=== PATIENT | female | born 1950 | race Caucasian/White ===

== ENCOUNTER 2017-03-26 12:26 | Inpatient (IN) | payer OTHER, BC ==
[~2017-03-26] VITALS: Ht 162.6 cm; Wt 103.7 kg
--- NOTE | ~2017-03-26 | HC ---
[facility] [address] [place] [address] CONSULTATION Name: YOBANI MOLINA Room #: 501-A [facility] IN ..#: [id number] Admission: 03/26/17 Attend Phys: Blaine Guerra MD Discharge: Date of : 48 Report #: [id number] THIS REPORT FOR: //name// CC: Blaine Guerra [facility] unknown DATE OF SERVICE: 03/30/2017 NEUROBEHAVIORAL STATUS EXAM AGE: 66. ATTENDING PHYSICIAN: Blaine Guerra MD. [employer] SUPERVISOR: Hu Mullen, PhD. CLINICAL PRESENTATION: The patient is a 66-year-old female admitted to [facility] for a comprehensive inpatient rehabilitation program to improve functional mobility and activities of daily living and self-care secondary to deficits from a left hip open reduction and internal fixation and myasthenia gravis. Her diagnoses also include premorbid peripheral neuropathy, diabetes mellitus, exogenous obesity, hypertension, prior left total shoulder arthroplasty, history of coronary artery disease, asthma, obstructive sleep apnea and stress incontinence. A complete description of her medical condition, history and medications can be found in her medical record. Neuropsychological consultation was requested to provide assistance in the assessment of cognitive and emotional status and to provide recommendations and services. Prior to this most recent admission, she was living independently in her own home with her . She is a college graduate. 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 She has one daughter living in [place] that is avaiable. A daughter 10 years ago from an autoimmune disease. She has 1 brother that lives in [place]. Increased environmental stress is reported with her husbands illness. He is currently hospitalized and has had deterioration in his medical condition for the past 12 months. She is worried about her ability to manage independent living with her in their [place]. TECHNIQUES UTILIZED: Clinical interview, review of medical records, staff consultation and behavioral observation, mini mental status exam 2 standard version, category fluency test and clock drawing. EXAMINATION FINDINGS: The patient was alert and cooperative with the assessment. She accurately described events surrounding her admission. There [address] [address] CONSULTATION Name: TRACYYOBANI J Room #: 501[facility] IN ..#: [id number] Admission: 03/26/17 Attend Phys: Blaine Guerra MD Discharge: Date of : 48 Report #: [id number] is no evidence of aphasia. Her thoughts are logical and goal oriented. There is no evidence of thought disorder. Treatment for depression was initiated upon the of her daughter and she continues to utilize an antidepressant. Increased anxiety is noted as a result of current changes in her environment and expectations regarding environmental demands upon her recovery and discharge home. She does not report difficulty with sleep, or appetite. Energy level is very low. She is more fatigued and likely result of the myasthenia gravis. Her performance on the MMSE 2 brief version is within normal limits with raw score of 15/16. Performance on the MMSE 2 standard version is within normal limits with a raw score 29/30. Category fluency is average with a raw score of 40, T score of 44 and percentile rank of 27. DIAGNOSTIC IMPRESSION: Adjustment disorder with anxiety. RECOMMENDATIONS: At this time, her cognitive functioning appears within normal limits. The patient is having increased anxiety as a result of her medical condition and concerns with her ability to maintain independence upon her return home. She is concerned about her 's well-being and pressure on her daughter who is reported as having an anxiety disorder. Psychological counseling will be of benefit to assist her adjustment and in the management of anxiety. Her mood is depressed, but not to the extent of the depressive episode from the loss of her daughter. Feassurance and support along with verbal praise and complements about her progress in therapies will also assist her overall adjustment. Thank you very much for allowing me to provide the consultation on this patient. <ELECTRONICALLY SIGNED> By: Hu Mullen, PhD 04/06/17 1349 [id number] Hu Mullen, PhD /nt
--- NOTE | ~2017-03-26 | H ---
[facility] [place] [address] [place] [address] HISTORY AND PHYSICAL Name: YOBANI MOLINA Room #: 501-A [facility] IN ..#: [id number] Admission: 03/26/17 Attend Phys: Blaine Guerra MD Discharge: 04/08/17 Date of : 48 Report #: [id number] THIS REPORT FOR: //name// CC: Blaine Guerra [facility] unknown DATE OF SERVICE: 03/27/2017 HISTORY OF PRESENT ILLNESS: The patient is a 66-year-old white female with history of a prior left hip replacement and dislocation of the joint x 2. She was recently diagnosed with myasthenia gravis and was started on some Mestinon. She was ambulating and noted a pop with pain. She was admitted to [facility] and noted to have a left hip dislocation of constrained total hip hemiarthroplasty. She underwent open reduction on 03/19/2017. She was allowed weightbearing as tolerated. Therapy notes from [place] indicate no hip restrictions and the patient confirms this, although I had already placed the patient on some routine hip precautions. The patient again is allowed weightbearing as tolerated. She concurrently has had the problems with double vision, falls, slurred speech and has the diagnosis of myasthenia gravis. She is apparently to have a nerve test with Dr. Silva in early April. She has had a significant decline from her premorbid functional status and has now been admitted for acute in-hospital inpatient rehabilitation. PAST MEDICAL HISTORY: Significant exogenous obesity, pericardial window placement for viral pericarditis, hypertension, hyperkalemia, history of kidney stones, celiac disease, obstructive sleep apnea for which she takes CPAP. She does have stress incontinence. PAST SURGICAL HISTORY: Includes a prior left total shoulder. She has right shoulder pain and notes that she needs a right shoulder replacement. She has had a prior left hip surgeries as noted above. FAMILY HISTORY: Hypertension. ALLERGIES: PENICILLIN. Please see the admission medication records. Each of these was noted to be individually reconciled upon admission and include the patient's vitamins, herbals and supplements. SOCIAL HISTORY: The patient lives in a house with her and daughter, although her is currently hospitalized. Her daughter works. There were 2-4 steps in. The patient has been utilizing a walker. There are some steps to get up upstairs bedroom. Daughter apparently was present for stairs and for bathing. REVIEW OF SYSTEMS: Did not offer any current complaints of chest pain, shortness of breath, abdominal discomfort. She does have the shoulder pain as [facility] [address] [place] [address] HISTORY AND PHYSICAL Name: YOBANI MOLINA Room #: 501-A [facility] IN [facility]#: [id number] Admission: 03/26/17 Attend Phys: Blaine Guerra MD Discharge: 04/08/17 Date of : 48 Report #: [id number] noted above. She has the stress incontinent. PHYSICAL EXAMINATION: GENERAL: Significantly obese, pleasant, 66-year-old white female, in no obvious distress. VITAL SIGNS: Last recorded temperature 97.5, pulse 71, respirations 20, blood pressure 134/73. Height is 5 feet 4 inches, weight 216 pounds. HEENT: I did not notice any obvious ptosis. She does have a right medial eye subconjunctival hemorrhage. EOMs appeared to be full. Facies otherwise were symmetric. She is able to verbalize reasonably well. CHEST: Sounded clear to auscultation. CARDIOVASCULAR: Regular rate and rhythm. ABDOMEN: Obese with a fairly large pendulous abdomen. Bowel sounds positive, nontender. She does have some adult pads in place. She favors moving that right shoulder with some premorbid degenerative arthritis. She can abduct forward flex to about 90 degrees. Strength of the elbow, wrist and hand appeared to be 4 to 4-/5. Left upper extremity, she has the old, well-healed scar from her prior total shoulder surgery. Strength of the left upper extremity is probably a grade 4- to 4/5. Right lower extremity, no focal calf swelling, functional range of motion, strength is grade 4-/5. DTRs are trace to 1. She does have decreased distal sensation of both lower extremities consistent with her peripheral neuropathy in a stocking distribution. Left lower extremity: The ARLETH dressing is in place. There are no focal calf swelling. Strength in level left lower extremity is probably a grade 4- to 3+/5. DTRs are trace to 1. She is needing assistance regarding basic functional mobility skills. ASSESSMENT: A 66-year-old white female with the following problem list: 1. Myasthenia gravis. 2. Dislocation prior left total hip replacement, status post open reduction. 3. Premorbid peripheral neuropathy. 4. Diabetes mellitus. 5. Exogenous obesity. 6. Hypertension. 7. Prior left total shoulder arthroplasty. 8. History of coronary artery disease. 9. History of asthma. 10. Obstructive sleep apnea. 11. Stress incontinent. PLAN: The patient is admitted for acute in-hospital inpatient rehabilitation. From a post-admission physician evaluation perspective, there are no relevant changes since the preadmission screening. Please see the above review of prior and current medical and functional conditions and comorbidities. Please see the patient's previous and current functional status. As far as risk of complication, she does have the multiple medical comorbidities as noted above. [address] [address] HISTORY AND PHYSICAL Name: YOBANI MOLINA Room #: 501-A [facility] IN [facility].#: [id number] Admission: 03/26/17 Attend Phys: Blaine Guerra MD Discharge: 04/08/17 Date of : 48 Report #: [id number] Initial plan of care involves the interdisciplinary acute inpatient rehabilitation program with the goal of maximizing the patient's functional independence, so that she can hopefully return back to her prior living situation. Measurable functional goals would be for the patient to become modified independent with transfers, mobility and ADLs, so that she can hopefully return back to the home setting. I will also have Speech Therapy to assess regarding swallowing issues with myasthenia. Prognosis is reasonably good with estimated length of stay, probably at least 10 days to 2 weeks. Potential barriers would include her multiple medical comorbidities and decreased functional status. The patient meets diagnostic criteria for an acute in-hospital inpatient rehabilitation stay. She meets medical necessity criteria and we will have the netsuite consultant physician involved. She does have the tolerance for therapies and has appropriate discharge goals back to the home setting. We will have wound care nursing assist regarding the management of the ARLETH dressing for that left hip as well. <ELECTRONICALLY SIGNED> By: Blaine Guerra MD 04/09/17 1111 [id number] Blaine Guerra MD /PMT
--- NOTE | ~2017-03-26 | PLAN ---
[facility] [place] [address] [place] [address] REHAB UNIT PLAN OF CARE Name: YOBANI MOLINA Room #: 501-A [facility] IN ..#: [id number] Admission: 03/26/17 Attend Phys: Blaine Guerra MD Discharge: 04/08/17 Date of : 48 Report #: [id number] THIS REPORT FOR: //name// CC: Blaine Guerra [facility] unknown DATE OF SERVICE: 03/28/2017 PLAN: The overall plan of care is based on the preadmission screen, post-admission physician evaluation and information garnered from therapy assessments. 1. Estimated length of stay is probably 10 days to 2 weeks and likely longer if warranted. 2. Medical prognosis is reasonably good. 3. Anticipated interventions includes the interdisciplinary acute inpatient rehabilitation program with PT and OT, rehab nursing assisting regarding medication management, skin care prophylaxis, bowel and bladder issues and nursing education. The philatelic consultant physicians will be involved as well along with the rest of the interdisciplinary acute rehabilitation team. 4. Anticipated functional outcomes would be for the patient to improve as far as her functional mobility, gait training and gait aids. She is currently contact guard with transfers and has ambulated 150 feet contact guard with a front-wheeled walker. In occupational therapy, upper body dressing is max assist with lower body dressing max assist. In speech therapy, she is being followed regarding swallowing issues and allowed a regular diet with thin liquids. Speech therapy is included in the anticipated interventions in #3 above as well. 5. Discharge destination would be back to the home setting where she lives with her and daughter. 6. Expected therapy by discipline includes PT and OT and speech 1 hour per day each five days a week throughout the duration of the acute inpatient rehabilitation stay. Would anticipate that we should be able to decrease the speech therapy and increase the PT and OT as she progresses in her rehabilitation program. <ELECTRONICALLY SIGNED> By: Blaine Guerra MD 04/09/17 1116 [id number] Blaine Guerra MD /PMT
[2017-03-26] MEDS ORDERED: ALBUTEROL2.5 MG/31 INH (12:40)
[2017-03-26] MEDS ORDERED: ALPRAZOLAM ER1 MG PO (12:41)
[2017-03-26] MEDS ORDERED: LIPITOR10 MG PO (12:42)
[2017-03-26] MEDS ORDERED: CYMBALTA60 MG PO (12:43)
[2017-03-26] MEDS ORDERED: NEURONTIN 300300 M1 PO (12:44)
[2017-03-26] MEDS ORDERED: NORCO 7.5-3251 EACH PO (12:46)
[2017-03-26] MEDS ORDERED: COZAAR 50 MG TA50 M2 PO (12:47)
[2017-03-26] MEDS ORDERED: NORVASC10 MG PO (12:48)
[2017-03-26] MEDS ORDERED: MESTINON60 MG PO (12:48)
[2017-03-26] MEDS ORDERED: WELLBUTRIN XL300 MG PO (12:49)
[2017-03-26] MEDS ORDERED: VITAMIN D1000 UNI1 PO (12:51)
[2017-03-26] MEDS ORDERED: MULTI VITAMIN1 EACH PO (12:53)
[2017-03-26 17:20] VITALS: BP 134/73
[2017-03-26 19:49] VITALS: BP 111/60
[2017-03-27 04:30] LABS: HEMATOCRIT 36.4 % (37.0-47.0); HEMOGLOBIN 11.6 gm/dL (12.0-15.0); MCH 25.2 pg (26.0-34.0); MCV 78.6 fL (80.0-100.0); RBC 4.63 mil/uL (4.20-5.00); RDW 20.6 % (10.5-14.5); WBC 9.1 thou/uL (4.0-11.0)
[2017-03-27 04:42] LABS: CALCIUM 9.7 mg/dL (8.5-10.1); CREATININE 0.7 mg/dL (0.6-1.0); POTASSIUM 3.7 mmol/L (3.5-5.1)
[2017-03-27 10:03] VITALS: BP 123/56
[2017-03-27 20:39] VITALS: BP 99/52
[2017-03-28 08:30] VITALS: BP 107/51
[2017-03-28 19:55] VITALS: BP 99/57
[2017-03-29 07:59] VITALS: BP 120/59
[2017-03-29 20:35] VITALS: BP 112/63
[2017-03-30 08:00] VITALS: BP 115/67
[2017-03-30 19:59] VITALS: BP 165/61
[2017-03-31 08:00] VITALS: BP 142/71
[2017-03-31 19:39] VITALS: BP 99/53
[2017-03-31 21:13] VITALS: BP 132/62
[2017-04-01 08:00] VITALS: BP 127/70
[2017-04-01 14:02] LABS: URINE BILIRUBIN NEGATIVE (Negative); URINE BLOOD TRACE (Negative); URINE COLOR YELLOW; URINE GLUCOSE-RANDOM* NEGATIVE (Negative); URINE KETONES NEGATIVE (Negative); URINE PROTEIN (DIPSTICK) NEGATIVE (Negative); URINE SPECIFIC GRAVITY <= 1.005 (1.003-1.035); URINE UROBILINOGEN 0.2 E.U./dl (0.2-1.0)
[2017-04-01 14:06] LABS: URINE LEUKOCYTES-REFLEX 2+ (Negative)
[2017-04-01 14:18] LABS: CASTS None Seen /LPF (None Seen); CRYSTALS None Seen /LPF (None Seen); SQUAMOUS 0-3 Few /LPF (0-3); TRANSITIONAL EPITHEL CELL 0-3 Few /LPF (None Seen); URINE RBC 0-2 Rare /HPF (0-2)
[2017-04-01 20:00] VITALS: BP 110/56
[2017-04-02 04:04] LABS: ABSOLUTE NEUTROPHILS 4.2 thou/uL (1.4-8.2); BASOPHILS 1.1 % (0.0-2.0); EOSINOPHILS 6.6 % (0.0-3.0); HEMATOCRIT 34.7 % (37.0-47.0); HEMOGLOBIN 11.2 gm/dL (12.0-15.0); LYMPHOCYTES 27.9 % (24.0-44.0); MCH 25.4 pg (26.0-34.0); MCHC 32.2 g/dL (28.0-37.0); MCV 78.8 fL (80.0-100.0); MONOCYTES 10.4 % (1.0-8.0); PLATELET COUNT 399 thou/uL (150-400); RDW 20.3 % (10.5-14.5); WBC 7.8 thou/uL (4.0-11.0)
[2017-04-02 04:18] LABS: MANUAL DIFF NO
[2017-04-02 04:21] LABS: ALBUMIN 2.5 g/dL (3.4-5.0); CALCIUM 9.6 mg/dL (8.5-10.1); CREATININE 0.8 mg/dL (0.6-1.0); MAGNESIUM 1.8 mg/dL (1.8-2.4); POTASSIUM 3.6 mmol/L (3.5-5.1); TOTAL BILIRUBIN 0.2 mg/dL (<0.1-1.0); TOTAL PROTEIN 6.2 g/dL (6.4-8.2)
[2017-04-02 08:00] VITALS: BP 111/52; BP 135/63
[2017-04-02 08:30] VITALS: BP 135/63
[2017-04-02 19:45] VITALS: BP 119/62
[2017-04-02 20:23] VITALS: BP 166/73
[2017-04-03 07:30] VITALS: BP 121/68
[2017-04-03 20:26] VITALS: BP 117/61
[2017-04-04 07:42] VITALS: BP 128/56
[2017-04-04 21:37] VITALS: BP 151/70
[2017-04-05 08:29] VITALS: BP 148/82
[2017-04-05 20:46] VITALS: BP 143/77
[2017-04-06 08:00] VITALS: BP 125/76
[2017-04-06 20:04] VITALS: BP 131/71
[2017-04-07 08:00] VITALS: BP 144/75
[2017-04-07 20:25] VITALS: BP 125/74
[2017-04-08 08:30] VITALS: BP 141/75
[2017-04-08] MEDS ORDERED: ACIDOPHILUS1 EAC4 PO (08:44)
[2017-04-08] MEDS ORDERED: VITAMIN B122500 MCG PO (08:44)
[2017-04-08] MEDS ORDERED: MESTINON60 MG PO (08:44)
[2017-04-08] MEDS ORDERED: [UNRECOGNIZED DRUG - OTHER] OPHTHALMIC (08:44)
[2017-04-08] MEDS ORDERED: ERGOCALCIF50000 UNIT PO (08:44)
[2017-04-08] MEDS ORDERED: COLACE100 MG PO (08:44)
[2017-04-08] MEDS ORDERED: SIMETHICON CHEW80 M1 PO (08:44)
[2017-04-08] MEDS ORDERED: DOXYCYCLINE 10100 MG PO (08:44)
[2017-04-08] MEDS ORDERED: MIRALAX17 GM PO (08:44)
[2017-04-08] MEDS ORDERED: ALBUTEROL2.5 MG/31 INH (09:32)
[2017-04-08 11:33] VITALS: BP 141/75
[2017-04-08 11:50] VITALS: BP 141/75
== END 2017-04-08 18:11 | disposition home health service (06) | DRG 57 ==
PROVIDERS: Nurse Practitioner; Physical Medicine & Rehabilitation
DX: G70.00 Myasthenia gravis without (acute) exacerbation (principal); N39.0 Urinary tract infection, site not specified; E44.0 Moderate protein-calorie malnutrition; F43.22 Adjustment disorder with anxiety; E66.09 Other obesity due to excess calories; Z68.39 Body mass index [BMI] 39.0-39.9, adult; I10 Essential (primary) hypertension; G47.33 Obstructive sleep apnea (adult) (pediatric); Z96.611 Presence of right artificial shoulder joint; Z96.642 Presence of left artificial hip joint; G62.9 Polyneuropathy, unspecified; I25.10 Atherosclerotic heart disease of native coronary artery without angina pectoris; J45.909 Unspecified asthma, uncomplicated; R53.81 Other malaise; E53.8 Deficiency of other specified B group vitamins; M24.452 Recurrent dislocation, left hip; D64.9 Anemia, unspecified; E78.5 Hyperlipidemia, unspecified; H11.31 Conjunctival hemorrhage, right eye; Z87.442 Personal history of urinary calculi; Z82.49 Family history of ischemic heart disease and other diseases of the circulatory system; Z88.0 Allergy status to penicillin; Z88.2 Allergy status to sulfonamides
CPT/HCPCS: 10112

== ENCOUNTER 2020-01-13 12:39 | Inpatient (IN) | payer OTHER, BC ==
[~2020-01-13] VITALS: Ht 162.6 cm; Wt 71.6 kg
[~2020-01-13 12:39] MED LIST: ACIDOPHILUS1 EAC4 PO; ALBUTEROL2.5 MG/31 INH; ALPRAZOLAM ER1 MG PO; COLACE100 MG PO; COZAAR 50 MG TA50 M2 PO; CYMBALTA60 MG PO; DOXYCYCLINE 10100 MG PO; ERGOCALCIF50000 UNIT PO; LIPITOR10 MG PO; MESTINON60 MG PO; MIRALAX17 GM PO; MULTI VITAMIN1 EACH PO; NEURONTIN 300300 M1 PO; NORCO 7.5-3251 EACH PO; NORVASC10 MG PO; SIMETHICON CHEW80 M1 PO; VITAMIN B122500 MCG PO; VITAMIN D1000 UNI1 PO; WELLBUTRIN XL300 MG PO; [UNRECOGNIZED DRUG - OTHER] OPHTHALMIC
[2020-01-13] MEDS ORDERED: FLOMAX0.4 MG PO (15:59)
[2020-01-13] MEDS ORDERED: ELIQUIS5 MG PO (16:00)
[2020-01-13] MEDS ORDERED: DILTIAZEM 24HR240 M1 PO (16:05)
[2020-01-13] MEDS ORDERED: PACERONE 200 M200 M1 PO (16:13)
[2020-01-13] MEDS ORDERED: ROSUVASTATIN CA20 MG PO (16:15)
[2020-01-13] MEDS ORDERED: PREDNISONE 5 MG5 M1 PO (16:17)
[2020-01-13] MEDS ORDERED: ZETIA10 MG PO ×2 (16:18→16:23)
[2020-01-13] MEDS ORDERED: DORYX MPC120 MG PO (16:27)
[2020-01-13 16:41] VITALS: BP 158/65
[2020-01-13 19:39] VITALS: BP 145/53
--- NOTE | 2020-01-13 20:06 | NUR ---
Admission Note: Arrived via ambulance with two attendants at 1230. Pt. came from [facility] ER with papers. Cooperative with admission. Signed in and wanted to leave-doesn't think this will be a helpful admission. She says she did not understand she would be admitted. Suicidal, PTSD, Major Depression. She is grieving her 2 daughters who -1 in 2006, the other suicided in June 2019. No hx of psychiatrist. She is not familiar with her meds. Says she has not been taking her meds for an undetermined amount of time. Has been hospitalized from June 2019 to mid December 2019. Recent Dx. Myesthenia Gravis, UTI, A.Fib. Overwhelmed with all of her medical issues. Though she now denies SI she has mentioned to [facility] she has no reason for living, and wishes to be . Non weight bearing to left hip/leg. Needs right shoulder surgery. Chronic pain left hip, right shoulder, right lower back. She does not understand her meds as she feels there are discrepancies between institutions. She did not mention hallucinations to this writer editor yet she did to [facility] transitions rn care coordinator. Self fed dinner. Given library montanez to signal staff. The first time she used it, she started to get out of bed putting her legs ove the side of the bed, was caught by RN, assisted to lying down and 4 side rails put up. Instructed to wait for staff.
[2020-01-13 20:30] VITALS: BP 145/53
--- NOTE | 2020-01-14 01:07 | NUR ---
PATIENT C/O BEING HOT AND COLD ALL NIGHT. THERMOSTAT ADJUSTED 3 TIMES. AT 0030 PATIENT CALLED TO HAVE THERMOSTAT COOLED DOWN D/T SHE WAS SWEATING AND HOT. TURNED THERMOSTAT DOWN TO 65. CHECKED PATIENT TEMP AND WAS 100.2 TEMPORAL AND 99.3 ORAL. HAD GIVEN PATIENT TYLENOL 650MG 2 HOURS EARLIER FOR GENERAL MYALGIAS. PATIENT'S COVID TEST WAS NEGATIVE TODAY. QUESTIONABLE URINE FROM LAST HOSPITAL WITH LEUKOCYTES IN IT. PT IS ON ANTIBIOTIC. AWAITING COLLECTION OF ANOTHER URINE SAMPLE FOR TESTING. CALLED HOSPITALIST NEUROUROLOGIST, ANGELA BRONSON. SHE ORDERED IBUPROFEN 400MG PO TO ALTERNATE WITH TYLENOL AND OK TO GIVE NOW. PATIENT TOOK IBUPROFEN 400MG PO AND IS RESTING IN BED. WILL CONTINUE TO MONITOR.
--- NOTE | 2020-01-14 01:59 | NUR ---
PATIENT AWOKE AND WITH C/O OF FEELING HOT. TEMP RECHECKED AND IS 98.3 ORAL TEMP AND 98.0 TEMPORAL. REMOVED PATIENT GOWN AND COVERED HER WITH SHEET. SHE IS NOT SWEATING SHE WAS BEFORE AND SKIN IS STARTING TO COOL. ADJUSTED BED FOR COMFORT AND HOB UP 30 DEGREES. BED ALARM ON AND BED IN LOW POSITION. PATIENT FELL BACK TO SLEEP.
--- NOTE | 2020-01-14 02:15 | NUR ---
EARLY IN EVENING WHEN TALKING WITH PATIENT SHE WAS SAYING THAT SHE NEEDED TO GET HOME TO TAKE CARE OF HER . SHE FEELS THAT SHE WAS TRICKED INTO COMING TO [facility]. SHE STATES SHE IS DEPRESSED BUT NOT SUICIDAL AND WOULD NEVER TRY AND HURT HERSELF. SHE STATES SHE DOESN'T BELIEVE IN SUICIDE. SHE STATES THAT SHE USED TO SEE HER DAUGHTER'S PSYCHIATRIST BUT HAS NOT BEEN SINCE SHE . SHE STATES SHE HAS ALL KINDS OF SUPPORT SYSTEMS IN PLACE AT HOME TO HELP TAKE CARE OF HER NEEDS. SHE STATES SHE HAS HOME HEALTH AND SHE HAS PEOPLE FROM HER [employer] THAT COME TO HELP ALSO. SHE IS WANTING TO GO HOME.
[2020-01-14 06:01] LABS: HEMATOCRIT 27.8 % (37.0-47.0); HEMOGLOBIN 8.3 gm/dL (12.0-15.0); MCH 20.7 pg (26.0-34.0); MCHC 29.8 g/dL (28.0-37.0); MCV 69.4 fL (80.0-100.0); RDW 19.7 % (10.5-14.5); WBC 14.3 thou/uL (4.0-11.0)
[2020-01-14 06:07] LABS: CALCIUM 9.5 mg/dL (8.5-10.1); CREATININE 1.1 mg/dL (0.6-1.0); MAGNESIUM 2.1 mg/dL (1.8-2.4); POTASSIUM 3.6 mmol/L (3.5-5.1)
--- NOTE | 2020-01-14 06:29 | NUR ---
PATIENT SLEEPING. NOTIFIED ANGELA BRONSON THAT WBC IS HIGH AT 4.0 IN THIS A.M. BLOOD DRAW AT 0540. IT WILL BE ADDRESSED FURTHER ON HOSPITAL ROUNDS THIS MORNING.
[2020-01-14 06:36] LABS: TSH 0.956 uIU/mL (0.358-3.740)
[2020-01-14 07:25] VITALS: BP 136/66
[2020-01-14 08:02] LABS: URINE BILIRUBIN NEGATIVE (Negative); URINE BLOOD TRACE (Negative); URINE CLARITY CLEAR; URINE COLOR YELLOW; URINE GLUCOSE-RANDOM* NEGATIVE (Negative); URINE KETONES NEGATIVE (Negative); URINE NITRITE-REFLEX NEGATIVE (Negative); URINE PROTEIN (DIPSTICK) TRACE (Negative); URINE UROBILINOGEN 0.2 E.U./dl (0.2-1.0)
[2020-01-14 08:48] LABS: URINE LEUKOCYTES-REFLEX 1+ (Negative)
[2020-01-14 09:03] LABS: CASTS None Seen /LPF (None Seen); SQUAMOUS 4-10 Moderate /LPF (0-3)
[2020-01-14 09:04] LABS: BACTERIA-REFLEX None Seen /HPF (None Seen); CRYSTALS None Seen /LPF (None Seen); URINE RBC None Seen /HPF (0-2); URINE WBC-REFLEX 6-15 Few /HPF (0-5); WBC CLUMPS Occasional (None Seen)
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
--- NOTE | 2020-01-14 16:08 | NUR ---
Alert and orientated X4. Wants to be discharged stating she made a mistake and kept signing papers. States she can receive the help she needs as an outpatient. Denies SI/HI stating she is sad and has cried d/t recent loss of daughter, health problems but has never wanted to harm herself. Calm and compliant with meds/cares. Breath sounds clear t/o. Reg HR auscultated. Color pink with brisk capillary refill and palpable peripheral pulses. Voided large amt of clear yellow urine per hat in commode, UA obtained. Active bowel sounds over large, soft, rounded abdomen. Two person assist with transfer to [facility]/. 1600 Resting in room. States she is disappointed with plan to not discharge today but is hopeful she will go home tomorrow. No s/o distress.
[2020-01-14 19:32] VITALS: BP 100/48
--- NOTE | 2020-01-14 21:46 | NUR ---
PT AOX4. PT REPORTS BEING JOYFUL ABOUT DISCHARGING TOMORROW AND HAPPY ABOUT NEW HOME COMMUNITY WITH HER . PT REPORTS PAIN IN RLE. PAIN IS NOTED TO WORSEN WITH SITTING, PILLOW OFFERED WHILE IN WC, PT REPORTS IMMEDIATE RELIEF. PT RECEIVING PRN PO APAP Q6HR WITH PRN PO IBUPROFEN Q8HR AVAILABLE. PT DENIES SI AND HI. PT COOPERATIVE WITH STAFF AND COMPLIANT WITH PLAN OF CARE AND SCHEDULED MEDICATIONS. ENCOURAGED PT TO NOTIFY STAFF FOR ALL NEEDS. BED ALARM ON WHILE IN BED, BED IN LOWEST POSITION, WILL CONTINUE TO MONITOR.
--- NOTE | 2020-01-14 22:07 | H ---
[facility] [place] [address] HISTORY AND PHYSICAL Name: YOBANI MOLINA Room #: 526B-B ADM IN M.R.#: [id number] Admission: 01/13/20 Attend Phys: Paul Singh DO Discharge: Date of : 48 Report #: [id number] THIS REPORT FOR: cc: CARI - Family physician unknown FAM - Family physician unknown Paul Singh DO ~ CC: Paul ALCALA unknown DATE OF SERVICE: 01/13/2020 INPATIENT PSYCHIATRIC EVALUATION SOURCES OF INFORMATION: Interview with the patient, notes, records from [facility] ER the patient was sent from. CHIEF COMPLAINT: "I'm here because I was looking for pain control and a counselor to talk to." HISTORY OF PRESENT ILLNESS: This is a 69-year-old obese female, BMI 39.2, height 162.56 cm. She reports that she was misunderstood, denying suicidal ideation. She states she has no history of suicidal ideation or attempts. It should be mentioned that her daughter did complete suicide in June of this year. She reports she does not feel depressed. She reports 10/10 pain. She states she has had 25 hip surgeries since 2016. She usually takes arthritis strength Equate. She reports her sleep is not good, averaging 4 hours a night. She states she uses a CPAP. She does not have that with her. She reports a weight change. She lost 100 pounds since diagnosis of myasthenia gravis in 2016 because it was hard to eat. She said sometimes she would not need at all because she does not see the point because she has no appetite and then she reports in the last 2 days, she ate everything in the house because she thought they would not be needing the food. She currently reports appetite is fair. She states she has not been taking any medication lately because "why is it important to take them." She reports her neighbor told her last night that she would start managing her meds. PSYCHIATRIC HISTORY: Diagnosed with depression in 2006, has taken Cymbalta and Wellbutrin. Reports she has a therapist through the [facility]. She also has a case mgr. MEDICAL HISTORY: Extensive and surgical as well. Not an optimal historian. She reports having a pericardial window done before, umbilical hernia repair, one ovary removed, history of cholecystectomy. REVIEW OF SYSTEMS: NEUROLOGICAL: Positive headache. Negative dizziness. [facility] [address] [place] [address] HISTORY AND PHYSICAL Name: YOBANI MOLINA Room #: 526B-B ADM IN M.R.#: [id number] Admission: 01/13/20 Attend Phys: Paul Singh DO Discharge: Date of : 48 Report #: [id number] RESPIRATORY: Baseline shortness of air. CARDIAC: Denies chest pain. GASTROINTESTINAL: Denies constipation, denies diarrhea. GENITOURINARY: Incontinent of urine. Otherwise, brief 10-point review of systems is negative. SOCIAL HISTORY: She reports she grew up in [place], [place]. She is a good [employer]. She has 1 older brother. She has sweet parents. EDUCATIONAL HISTORY: Master's degree in education. 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 She denies a history of alcohol, tobacco or recreational drug use. She lives at home with . She has 2 daughters, ages 25 and 34. In terms of ADLs, she bathes herself, eats her Meals on Wheels. does not help with cooking, bathing or medications. She has 2 dogs at home that bring her lots of jo ann. She uses a wheelchair for mobility. The patient on memory screen, had impaired recall, some intentional fluctuations. The SLUMS was aborted because the patient appeared to be very uncomfortable and in pain at that time. Some tangential thought. Denied family history of mental illness, suicidal ideation. ALLERGIES: CIPROFLOXACIN, AMINOGLYCOSIDES, PENICILLINS, SULFONAMIDE. PHYSICAL EXAMINATION: VITAL SIGNS: Here, temperature 36.6, pulse 96, respirations 19, BP 145/53, O2 sat 92%. GENERAL: Supine, obese, reports she cannot ambulate, requesting wheelchair. LABORATORY STUDIES: Laboratories were done at [facility] and believed to be grossly normal. I do not have them handy, but I will insert a general review of them when I edit the note. Urinalysyis + leukocyte esterase Covid 19 PCR negative bmp wnl- ecept glucose 101, BUN 24 cbc abnormalities- wbc 14.1, hg 8.2, Hct 29 plt 464 mcv 72 abs neutrophil count 9.2monocytes 1.5, UDS + benzodiazepines differ TSH to outpatient patient should get cbc done as outpatient to follow up MENTAL STATUS EXAMINATION: This is a well-developed, obese female appearing nearly stated age. Attention limited. Concentration limited. Speech is normal rate. Thought process is linear and goal directed. Thought content, focusing on the suicide of her daughter, then answering questions about herself. Some psychomotor retardation with psychomotor agitation. Denied she was suicidal or homicidal. Denied auditory, visual or tactile hallucinations. Denied nightmares, flashbacks. Some helplessness. Denied hopelessness. Memory [facility] [address] [place] [address] HISTORY AND PHYSICAL Name: YOBANI MOLINA Room #: 526B-B ADM IN ..#: [id number] Admission: 01/13/20 Attend Phys: Paul Singh, Discharge: Date of : 48 Report #: [id number] appearing to be impaired, but not able to be completely addressed today. Insight limited. Judgment limited. Fund of knowledge below average. FORMULATION: A 69-year-old female transferred from [facility] for further evaluation of her ability to care for herself as well as concern for suicidal ideation. DIAGNOSES: At this time, major depressive disorder, recurrent, severe degree, obesity, myasthenia gravis, history of possible atrial fibrillation. PLAN: Evaluate, stabilize, obtain collateral. Regarding her medications, the patient is not quite clear with them. We will keep her on tamsulosin 0.4 mg p.o. daily, prednisone 5 mg p.o. daily, losartan 100 mg p.o. daily, Zetia 10 mg p.o. daily, diltiazem 240 mg p.o. daily, Wellbutrin-XL 300 mg p.o. daily, amiodarone 200 mg p.o. daily, doxycycline 100 mg twice a day, atorvastatin 10 mg p.o. at bedtime, Eliquis 5 mg p.o. b.i.d., otherwise house PRNs. ESTIMATED LENGTH OF STAY: 5-10 days. Plan to complete a SLUMS or MoCA in the next day or two. Additional collateral from her would be desirable. STRENGTHS: Insured, is having some family support. WEAKNESSES: Chronic physical, perhaps chronic mental illness, poor coping skills. Time spent on interview, review of records, coordination of care is at least 45 minutes. <ELECTRONICALLY SIGNED> By: Paul Singh DO 01/14/207 [id number] 16 Paul Singh DO /nt
[2020-01-15 07:24] VITALS: BP 141/66
[2020-01-15 08:59] VITALS: BP 141/66
--- NOTE | 2020-01-15 09:10 | NUR ---
PATIENT HAS BEEN UP IN WHEELCHAIR, AND OUT ON THE UNIT, SHE TOOK MORNING MEDICATION WHOLE WITHOUT DIFFICULTY. PATIENT IS EATING MEALS, AND DRINKING FLUID WELL. PATIENT IS CALM, COOERATIVE WITH CARE, REPORTS SLEEP ISSUES DUE TO TO UNAVAILABILITY OF C-PAP. PATIENT DENIES SUICIDAL/HOMICIDAL IDEATION. SHE DENIES DEPRESSION/ANXIETY. SHE REPORTS HAD BOWEL MOVEMENT THIS MORNING. PAIN TO LEFT HIS RATED 5/10. GETTING PAIN MEDICATION FOR THE CHRONIC PAIN. PATIENT STATES SHE IS EXCITED ABOUT GOING HOME. PATIENT PARTICIPATING IN GROUP THERAPY. AFFECT IS CALM, MOOD IS HAPPY. NO SIGN OF ACUTE DISTRESS NOTED AT THIS TIME, WILL MONITOR FOR SAFETY.
--- NOTE | 2020-01-15 11:16 | NUR ---
Zahira with Adult Protective Services in [place] called to speak to pt and ensure she is safe. SW attended the meeting with pt by phone in which Zahira asked questions about her safety at home. Pt indicated she was fine and nothing was wrong at home. Zahira told pt she will come to see her at her home next week. SW team will continue to follow pt during her stay on this unit.
[2020-01-15 12:04] LABS: HEMATOCRIT 29.8 % (37.0-47.0); HEMOGLOBIN 8.7 gm/dL (12.0-15.0); MCH 20.4 pg (26.0-34.0); MCV 70.3 fL (80.0-100.0); RBC 4.24 mil/uL (4.20-5.00); RDW 20.4 % (10.5-14.5); WBC 13.7 thou/uL (4.0-11.0)
[2020-01-15 12:15] LABS: CALCIUM 9.6 mg/dL (8.5-10.1); CREATININE 1.2 mg/dL (0.6-1.0); MAGNESIUM 2.1 mg/dL (1.8-2.4); POTASSIUM 4.3 mmol/L (3.5-5.1)
[2020-01-15 12:40] VITALS: BP 141/66
[2020-01-15] MEDS ORDERED: CEFDINIR300 MG PO (12:43)
[2020-01-15] MEDS ORDERED: B-12500 MCG PO (12:45)
[2020-01-15] MEDS ORDERED: VITAMIN D325 MC1 PO (12:46)
--- NOTE | 2020-01-15 13:42 | NUR ---
MARY D/C NOTE MARY faxed d/c docs to both [facility] and [facility]. MARY will file these docs and confirmation pages in pt's hospital file.
--- NOTE | 2020-01-17 14:31 | D ---
[facility] [place] [address] DISCHARGE SUMMARY Name: YOBANI MOLINA Room #: 526B-B [facility] IN M.R.#: [id number] Admission: 01/13/20 Attend Phys: Paul Singh DO Discharge: 01/15/20 Date of : 48 Report #: [id number] THIS REPORT FOR: cc: CARI - Family physician unknown FAM - Family physician unknown Paul Singh DO ~ THIS REPORT FOR: //name// CC: Paul ALCALA unknown DATE OF SERVICE: 01/15/2020 INPATIENT PSYCHIATRIC DISCHARGE SUMMARY ATTENDING PHYSICIAN: Paul Singh DO. 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 The patient will be discharging to her home in [place], [place] where she lives with her . We recommend heart healthy diet with weight loss as ongoing. She does have a UTI, so I gave her a prescription for 18 tablets of Omnicef, cefdinir 300 mg p.o. b.i.d. She is also on vitamin B12 of 500 mcg p.o. daily, cholecalciferol 2000 International Units p.o. daily, losartan 100 mg p.o. daily, bupropion 300 mg XL daily, tamsulosin 0.4 mg p.o. at bedtime, apixaban 5 mg p.o. b.i.d., diltiazem 240 mg p.o. daily, amiodarone 200 mg p.o. daily, rosuvastatin 20 mg p.o. daily, prednisone 5 mg p.o. daily for myasthenia gravis, and ezetimibe 10 mg p.o. daily for hypertriglyceridemia. No alprazolam, no hydrocodone, no doxycycline, all those we will stop this admission. Home Health has been prescribed for the patient including nursing, social work, PT, OT and requests for home safety eval. REASON FOR ADMISSION: The patient is transferred from [facility] for suspected suicidal ideation. The patient had suicide of her daughter this past June. There are allegations the patient denied of verbal and emotional abuse from her who is an amputee. HOSPITAL COURSE: The patient was admitted to Geriatric Psychiatry Unit. The patient did not wish to partake any psychiatric medication; therefore, the purpose of the admission quickly became a safety check. The patient denies [address] [address] DISCHARGE SUMMARY Name: YOBANI MOLINA Room #: 526B-B [facility] IN M.R.#: [id number] Admission: 01/13/20 Attend Phys: Paul Singh, Discharge: 01/15/20 Date of : 48 Report #: [id number] having access to firearms and such, is future oriented, is wanting to continue living with her . The patient does qualify for mild cognitive impairment; she scored 22/30. CONDITION AT DISCHARGE: Stable. No SI, no HI. PHYSICAL EXAMINATION: VITAL SIGNS: Temperature 36.8, pulse 87, respirations 16, BP 141/66, BMI was 39.2, weight 103.691 kilos. MUSCULOSKELETAL: Seated in wheelchair. Gait not tested. MENTAL STATUS EXAMINATION: This is a well-developed, obese female. Attention fair. Concentration is fair. Speech is normal rate. Thought process is linear and goal directed. Thought content focused on things to take care of at home. No psychomotor agitation. No psychomotor retardation. Denied SI or HI. Denied auditory, visual, or tactile hallucinations. Memory, the patient does qualify for mild cognitive impairment; she scored 22/30. Fund of knowledge, no greater than average. PROGNOSIS: For this patient is guarded given [place] area, some persistent noncompliance. My sincere hope is the patient will change her way in this regard as I believe she is served by the [facility] in [place], [place] which provides community mental health services. <ELECTRONICALLY SIGNED> By: Paul Singh DO 01/17/20 [id number] Paul Singh DO /nt
== END 2020-01-15 13:15 | disposition home or self-care (01) | DRG 885 ==
LOC: SBH
PROVIDERS: Internal Medicine; ADMIT Psychiatry & Neurology Psychiatry; ATTEND Psychiatry & Neurology Psychiatry
DX: F33.9 Major depressive disorder, recurrent, unspecified (principal); R45.851 Suicidal ideations; N39.0 Urinary tract infection, site not specified; E66.9 Obesity, unspecified; G70.00 Myasthenia gravis without (acute) exacerbation; I48.91 Unspecified atrial fibrillation; I10 Essential (primary) hypertension; Z96.649 Presence of unspecified artificial hip joint; E78.5 Hyperlipidemia, unspecified; Z88.0 Allergy status to penicillin; Z88.2 Allergy status to sulfonamides; Z88.8 Allergy status to other drugs, medicaments and biological substances; Z88.1 Allergy status to other antibiotic agents; Z68.27 Body mass index [BMI] 27.0-27.9, adult; Z79.899 Other long term (current) drug therapy
CPT/HCPCS: 10880